=== PATIENT | female | born 2005 | race African-American/Black ===

== ENCOUNTER 2023-04-15 16:16 | Emergency (ER) | payer OTHER, SELFPAY ==
[2023-04-15] MEDS ORDERED: Ondansetron ODT 4 MG TAB ONE (16:22)
== END 2023-04-15 16:27 | disposition home or self-care (01) ==
LOC: ERS 16:16
DX: O99.611 Diseases of the digestive system complicating pregnancy, first trimester (principal); Z3A.09 9 weeks gestation of pregnancy
CPT/HCPCS: 99283; Q0162